=== PATIENT | male | born 2000 | race Caucasian/White ===

== ENCOUNTER 2020-06-22 12:36 | Emergency (ER) | payer MEDICAID, SELFPAY | END 2020-06-22 13:13 | disposition home or self-care (01) | LOC: ERS 12:36 | DX: S41.112D Laceration without foreign body of left upper arm, subsequent encounter (principal) ==

== ENCOUNTER 2022-12-15 02:31 | Emergency (ER) | payer SELFPAY ==
[2022-12-15] MEDS ORDERED: LORazepam 2 MG/ML SYR.(CARPUJECT) ONE ×2 (04:43→06:21)
== END 2022-12-16 10:14 ==
LOC: ERS 02:31
DX: R45.851 Suicidal ideations (principal)
CPT/HCPCS: 93005; 96374; 96376; J2060